=== PATIENT | female | born 1940 | race Caucasian/White ===

== ENCOUNTER 2016-10-17 14:00 | Outpatient (RCR) ==
--- NOTE | 2016-09-30 16:21 | RS.OPPTEV2 ---
Date of Note: 09/30/16 Visit #: 1 Date of Evaluation: 09/30/16 Date of Onset/Injury/Change in Status: 09/14/16 Surgery Performed?: No Treatment Diagnosis: Falls History of Condition/Mechanism of Injury:: Fell on Maribel night. 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 I have been falling more recently and having more diffiuclty walking. I notice my balance is just not as good as it was after the PT I had after my CVA. She hurt her head, left shoulder and left hip when she fell. She has even fallen out of bed several times. She cannot get up out of the floor when she falls and is even having trouble getting up from the toilet daily. Prior Level of Function.....Patient was independent with: ADL's, Self Care, Work /Vocation, Caregiving, Ambulation/Mobility, Community Integration/Access Functional Limitations: Lifting, Carrying, Standing, Bending, Squatting, Ambulation, Community Access/Integration Current Subjective/complaints:: I am fearful of falling all the time. Treatment Side (optional): Bilateral *Precautions: Pt has poorly controlled BP and asked that BP be monitored after tx Medical History Medical History: Hypertension, CVA/TIA, Arthritis, Vascular Disease Medical History Comments:: Left hemiparesis from CVA Surgical History: Cholecystectomy, Other Surgical History Comments:: Cataract, ASD (repair holes in her heart). Pain Assessment - Pain Description Pain Location: left neck and shoulder pain and right knee pain Pain Description: left neck and shoulder pain since fall. Current Pain Intensity: 2-3/10 Other Comments regarding Pain:: OT referral requested to address neck and shoulder pain. Functional Outcome Measure Tinetti: 15 (46% disability) - G Codes & Severity Modifier G Codes & Modifier: Current - Mobility, Walking and Moving Around - CK. Goal: CJ Source of G Code score: Tinetti Balance Assessment Gait - Gait Pattern General Gait Pattern Observation: Weaving Gait, Wide Based Gait (Decreased stride length and decreased LLE clearance intermittently) General Muscle Strength: RLE 5/5. LLE 4/5 except left ankle df of 3/5 Sensation - Sensation Sensation Description: Within Normal Limits Balance - Sitting Balance Static Sitting Balance: Normal Dynamic Sitting Balance: Normal - Standing Balance Static Standing Balance: Good Dynamic Standing Balance: Fair (No AD used.) Coordination - Tests Left Heel to Wren: Mild Deviation (LLE) Interventions - Exercise/Activities/Manual Therapy Exercises/Activities: NMR for static and dynamic balance activites iwth [employer] Balance System performed with assist of handrails and min assist of PT. Manual Therapy: NA - Charges Total Direct Minutes: 60 Total Treatment Time: 15 Procedures billed for this date of service:: PT Eval (Mod) & NMR Assessment Assessment: Left hemiparesis and neuromuscular deficit causing balance and coordination problems with multiple falls and gait deficits. Patient Education: Education of diagnosis, Home Exercise Program, Education of Plan of Care Rehab Potential: Good Short Term Goals Goal #1: Patient independent with beginning HEP Goal to be met by: 10/17/16 Goal #2: Left ankle df 4-/5 Goal to be met by: 10/17/16 Goal #3: Ambulates with good LLE clearance X 500' Goal to be met by: 10/17/16 Goal #4: 18/28 Tinetti Balance Score Goal to be met by: 10/17/16 Prison Goals Goal #1: 4+/5 with LLE strength Goal to be met by: 10/31/16 Goal #2: Tinetti balance score 22/28 to decrease fall risk. Goal to be met by: 10/31/16 Goal #3: No falls since PT began. Goal to be met by: 10/31/16 Goal #4: HEP compliance to maintain DC status. 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
--- NOTE | 2016-10-01 16:23 | RS.OPPTDN ---
Subjective Date of Note: 10/01/16 Visit #: 2 Date of Evaluation: 09/30/16 Treatment Diagnosis: Falls Current Subjective/complaints:: Patient reports left LE weakness is a problem. States this seems to cause her falls. 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 *Precautions: Pt has poorly controlled BP and asked that BP be monitored after tx Pain Assessment - Pain Description Pain Location: left neck and shoulder pain and right knee pain Pain Description: left neck and shoulder pain since fall. Current Pain Intensity: 2-310 Interventions - Exercise/Activities/Manual Therapy Exercises/Activities: Mat exercises of assisted stretching, isometric hip add, isometric hip flexion, bridging, and SLR. Yellow theraband for resistive left ankle df. NMR for static and dynamic balance activites on [employer] Balance System. Standing at handrail for mini-squats, toe-ups, side-stepping, marching, heel toe walking, and backward walking. Step-ups and downs on small stepper board and lateral step-ups and downs. Total minutes of Exercise: EX 15mins, NEURO 35mins Manual Therapy: NA HOME EXERCISE PROGRAM: Standing toe-ups, mini-squats. Isometric hip flexion and add. Bridging. SLR. - Charges Total Direct Minutes: 50mins Total Treatment Time: 50mins Procedures billed for this date of service:: EX, NEUROx2 Assessment: Patient motivated to progress with strengthening and balance activities to improve safe ambulation and functional mobility. Patient Education: Home Exercise Program, Home Safety, Activity Modification Patient demonstrates compliance with HEP?: Yes Short Term Goals Goal #1: Patient independent with beginning HEP Goal to be met by: 10/17/16 Progress towards Goal:: Progressing Goal #2: Left ankle df 4-/5 Goal to be met by: 10/17/16 Goal #3: Ambulates with good LLE clearance X 500' Goal to be met by: 10/17/16 Goal #4: Tinetti Balance Score Goal to be met by: 10/17/16 Pathology Secretary Goals Goal #1: 4+/5 with LLE strength Goal to be met by: 10/31/16 Goal #2: Tinetti balance score to decrease fall risk. Goal to be met by: 10/31/16 Goal #3: No falls since PT began. Goal to be met by: 10/31/16 Goal #4: HEP compliance to maintain DC status. Goal to be met by: 10/31/16 Plan PLAN OF CARE EXPIRES ON:: 10/31/16 ORDER # VISITS AND/OR THROUGH DATE: 10/31/2016 PLAN: Continue Plan of Care
--- NOTE | 2016-10-03 15:11 | RS.OPPTDN ---
Subjective Date of Note: 10/03/16 Visit #: 3 Date of Evaluation: 09/30/16 Treatment Diagnosis: Falls Current Subjective/complaints:: Patient reports she was fatigued after last seesion, but she feels she needs the exercise for strengthening. *Precautions: Pt has poorly controlled BP and asked that BP be monitored after tx Pain Assessment - Pain Description Pain Location: left neck and shoulder pain and right knee pain Pain Description: left neck and shoulder pain since fall. Current Pain Intensity: 2-3/10 Interventions - Exercise/Activities/Manual Therapy Exercises/Activities: NMR for static and dynamic balance activites on [employer] Balance System. Standing at handrail for mini-squats, toe-ups, side-stepping, marching, heel toe walking. Step-ups and downs on small stepper board and lateral step-ups and downs. Treadmill 1 1/2mins x2reps. EXERCISE of FAQ and hip flexion with 2# to each ankle, 2s/10reps each. Wand for overhead flexion 3s/ 5reps. Mat ex of SLR, hip add with pillow, glut sets, bridging, isometric hip flexion, hip abduction. Total minutes of Exercise: NEURO 30mins, EX 15mins Manual Therapy: NA HOME EXERCISE PROGRAM: Standing toe-ups, mini-squats. Isometric hip flexion and add. Bridging. SLR. - Charges Total Direct Minutes: 45mins Total Treatment Time: 45mins Procedures billed for this date of service:: NEUROx2, EX Assessment: Patient motivated to progress with strengthening and balance activities. Patient Education: Home Exercise Program, Home Safety, Activity Modification Patient demonstrates compliance with HEP?: Yes Short Term Goals Goal #1: Patient independent with beginning HEP Goal to be met by: 10/17/16 Progress towards Goal:: Progressing Goal #2: Left ankle df 4-/5 Goal to be met by: 10/17/16 Goal #3: Ambulates with good LLE clearance X 500' Goal to be met by: 10/17/16 Goal #4: Tinetti Balance Score Goal to be met by: 10/17/16 Professor Of Religious Studies Goals Goal #1: 4+/5 with LLE strength Goal to be met by: 10/31/16 Goal #2: Tinetti balance score to decrease fall risk. Goal to be met by: 10/31/16 Goal #3: No falls since PT began. Goal to be met by: 10/31/16 Goal #4: HEP compliance to maintain DC status. Goal to be met by: 10/31/16 Plan PLAN OF CARE EXPIRES ON:: 10/31/16 ORDER # VISITS AND/OR THROUGH DATE: 10/31/2016 PLAN: Continue Plan of Care
--- NOTE | 2016-10-07 16:42 | RS.OPPTDN ---
Subjective Date of Note: 10/07/16 Visit #: 4 Date of Evaluation: 09/30/16 Treatment Diagnosis: Falls Current Subjective/complaints:: Patient reports she is working on HEP and on making sure she picks up her feet with walking. *Precautions: Pt has poorly controlled BP and asked that BP be monitored after tx Pain Assessment - Pain Description Pain Location: left neck and shoulder pain and right knee pain Pain Description: left neck and shoulder pain since fall. Current Pain Intensity: 2-3/10 Interventions - Exercise/Activities/Manual Therapy Exercises/Activities: NMR for static and dynamic balance activites on [employer] Balance System, including unilateral standing. Standing at handrail for mini- squats, grapevine walking, side-stepping, marching, heel toe walking. Step-ups and downs on small stepper board and lateral step-ups and downs. Treadmill 2mins x2reps. EXERCISE Mat ex of SLR, hip add with pillow, glut sets, isometric hip flexion, hip abduction. Yellow theraband for ankle df, 2s/10reps each. Isometric df, inv, and eversion. Total minutes of Exercise: NEURO 30mins, EX 20mins Manual Therapy: NA HOME EXERCISE PROGRAM: Standing toe-ups, mini-squats. Isometric hip flexion and add. Bridging. SLR. - Charges Total Direct Minutes: 50mins Total Treatment Time: 50mins Procedures billed for this date of service:: NEUROx2, EX Assessment: Patient motivated to progress. Patient Education: Home Exercise Program, Home Safety, Activity Modification Patient demonstrates compliance with HEP?: Yes Short Term Goals Goal #1: Patient independent with beginning HEP Goal to be met by: 10/17/16 Progress towards Goal:: Progressing Goal #2: Left ankle df 4-/5 Goal to be met by: 10/17/16 Goal #3: Ambulates with good LLE clearance X 500' Goal to be met by: 10/17/16 Goal #4: Tinetti Balance Score Goal to be met by: 10/17/16 Senior Care Goals Goal #1: 4+/5 with LLE strength Goal to be met by: 10/31/16 Goal #2: Tinetti balance score / to decrease fall risk. Goal to be met by: 10/31/16 Goal #3: No falls since PT began. Goal to be met by: 10/31/16 Goal #4: HEP compliance to maintain DC status. Goal to be met by: 10/31/16 Plan PLAN OF CARE EXPIRES ON:: 10/31/16 ORDER # VISITS AND/OR THROUGH DATE: 10/31/2016 PLAN: Continue Plan of Care
--- NOTE | 2016-10-08 15:18 | RS.OPPTDN ---
Subjective Date of Note: 10/08/16 Visit #: 5 Date of Evaluation: 09/30/16 Treatment Diagnosis: Falls Current Subjective/complaints:: Patient reports she had some muscle soreness after last session, but feels like she needs the strengthening. *Precautions: Pt has poorly controlled BP and asked that BP be monitored after tx Pain Assessment - Pain Description Pain Location: left neck and shoulder pain and right knee pain Pain Description: left neck and shoulder pain since fall. Current Pain Intensity: 2-3/10 Interventions - Exercise/Activities/Manual Therapy Exercises/Activities: NMR for static and dynamic balance activites on [employer] Balance System, including unilateral standing. Standing at handrail for, grapevine walking, side-stepping, marching, heel toe walking, backward walking. Standing on blue therapy foam, 3 times each side. Step-ups and downs on small stepper board and lateral step-ups and downs. EXERCISE Standing hip abduction, toe-ups, and squats. Ball on wall each arm. Standing scapular retraction 20#, 2s /10reps. Leg press 30# 2s/10reps and toe-offs 30# 2s/10reps. Total minutes of Exercise: NEURO 35mins, EX 15mins Manual Therapy: NA HOME EXERCISE PROGRAM: Standing toe-ups, mini-squats. Isometric hip flexion and add. Bridging. SLR. Isometric ankld df, inv, and ever. Standing hip abduction. - Charges Total Direct Minutes: 50mins Total Treatment Time: 50mins Procedures billed for this date of service:: NEUROx2, EX Assessment: Patient progressing well with balance and strengthening activities. Patient Education: Home Exercise Program, Home Safety, Activity Modification Comments: Reviewed safety including wider stance on days she feels fatigued. Patient demonstrates compliance with HEP?: Yes Short Term Goals Goal #1: Patient independent with beginning HEP Goal to be met by: 10/17/16 Progress towards Goal:: Progressing Goal #2: Left ankle df 4-/5 Goal to be met by: 10/17/16 Goal #3: Ambulates with good LLE clearance X 500' Goal to be met by: 10/17/16 Goal #4: Tinetti Balance Score Goal to be met by: 10/17/16 [facility] Goals Goal #1: 4+/5 with LLE strength Goal to be met by: 10/31/16 Goal #2: Tinetti balance score 22/28 to decrease fall risk. Goal to be met by: 10/31/16 Goal #3: No falls since PT began. Goal to be met by: 10/31/16 Goal #4: HEP compliance to maintain DC status. Goal to be met by: 10/31/16 Plan PLAN OF CARE EXPIRES ON:: 10/31/16 ORDER # VISITS AND/OR THROUGH DATE: 10/31/2016 PLAN: Continue Plan of Care
--- NOTE | 2016-10-10 15:18 | RS.OPPTDN ---
Subjective Date of Note: 10/10/16 Visit #: 6 Date of Evaluation: 09/30/16 Treatment Diagnosis: Falls Current Subjective/complaints:: Patient reports left LE seems stronger. States she is working on HEP including theraband for resistive left ankle df. *Precautions: Pt has poorly controlled BP and asked that BP be monitored after tx Pain Assessment - Pain Description Pain Location: left neck and shoulder pain and right knee pain Pain Description: left neck and shoulder pain since fall. Current Pain Intensity: 2-3/10 Interventions - Exercise/Activities/Manual Therapy Exercises/Activities: NMR for static and dynamic balance activites on [employer], including unilateral standing. Standing at handrail for, grapevine walking, side-stepping, marching, heel toe walking, backward walking. Standing on blue therapy foam, 3 times each side. Step-ups and downs on small stepper board and lateral step-ups and downs. EXERCISE Standing hip abduction, toe-ups, and squats. Ball on wall each arm. Standing scapular retraction 20#, 2s /10reps. Leg press 30# 2s/10reps and toe-offs 30# 2s/10reps. Mat exercises of isometric hip add, SLR, bridging, alt hip flexion, isometric hip abduction. Total minutes of Exercise: NEURO 30mins, EX 20mins Manual Therapy: NA HOME EXERCISE PROGRAM: Standing toe-ups, mini-squats. Isometric hip flexion and add. Bridging. SLR. Isometric ankld df, inv, and ever. Standing hip abduction. - Charges Total Direct Minutes: 50mins Total Treatment Time: 50mins Procedures billed for this date of service:: NEUROx2, EX Assessment: Patient progressing well with strengthening. Patient Education: Home Exercise Program Patient demonstrates compliance with HEP?: Yes Short Term Goals Goal #1: Patient independent with beginning HEP Goal to be met by: 10/17/16 Progress towards Goal:: Met Goal #2: Left ankle df 4-/5 Goal to be met by: 10/17/16 Goal #3: Ambulates with good LLE clearance X 500' Goal to be met by: 10/17/16 Goal #4: Tinetti Balance Score Goal to be met by: 10/17/16 Plate Painter Apprentice Goals Goal #1: 4+/5 with LLE strength Goal to be met by: 10/31/16 Goal #2: Tinetti balance score 22/28 to decrease fall risk. Goal to be met by: 10/31/16 Goal #3: No falls since PT began. Goal to be met by: 10/31/16 Goal #4: HEP compliance to maintain DC status. Goal to be met by: 10/31/16 Plan PLAN OF CARE EXPIRES ON:: 10/31/16 ORDER # VISITS AND/OR THROUGH DATE: 10/31/2016 PLAN: Continue Plan of Care
--- NOTE | 2016-10-14 16:35 | RS.OPPTDN ---
Subjective Date of Note: 10/14/16 Visit #: 7 Date of Evaluation: 09/30/16 Treatment Diagnosis: Falls Current Subjective/complaints:: Patient reports being able to lift left LE into car. States she is getting stronger. *Precautions: Pt has poorly controlled BP and asked that BP be monitored after tx Pain Assessment - Pain Description Pain Location: left neck and shoulder pain and right knee pain Pain Description: left neck and shoulder pain since fall. Current Pain Intensity: 2-3/10 Interventions - Exercise/Activities/Manual Therapy Exercises/Activities: NEURO. Static and dynamic balance activites on [employer] Balance System, including unilateral standing. Standing at handrail for, grapevine walking, side-stepping, marching, heel toe walking, backward walking. Standing on blue therapy foam, multiple reps. Ball on wall while standing and while performing side-stepping. EXERCISE Standing hip abduction, toe-ups, and squats. Standing scapular retraction 20#, 2s/10reps. Leg press 30# 2s/10reps. Mat exercises of isometric hip add, SLR, alt hip flexion, isometric hip abduction. Green theraband for hip abd in hook-lying, 2s/10reps each, and left ankle df 2s/10reps. Assisted hamstring stretching and SKTC. Total minutes of Exercise: NEURO 35mins EX 15mins Manual Therapy: NA HOME EXERCISE PROGRAM: Standing toe-ups, mini-squats. Isometric hip flexion and add. Bridging. SLR. Isometric ankld df, inv, and ever. Standing hip abduction. - Charges Total Direct Minutes: 50mins Total Treatment Time: 50mins Procedures billed for this date of service:: NEUROx2, EX Assessment: Patient progressing with strengthening and reports improvement in left LE with functional activities. Patient Education: Home Exercise Program, Home Safety, Activity Modification Patient demonstrates compliance with HEP?: Yes Short Term Goals Goal #1: Patient independent with beginning HEP Goal to be met by: 10/17/16 Progress towards Goal:: Met Goal #2: Left ankle df 4-/5 Goal to be met by: 10/17/16 Goal #3: Ambulates with good LLE clearance X 500' Goal to be met by: 10/17/16 Progress towards Goal:: Progressing Goal #4: Tinetti Balance Score Goal to be met by: 10/17/16 Group Home Goals Goal #1: 4+/5 with LLE strength Goal to be met by: 10/31/16 Goal #2: Tinetti balance score / to decrease fall risk. Goal to be met by: 10/31/16 Goal #3: No falls since PT began. Goal to be met by: 10/31/16 Progress towards goal: Progressing Goal #4: HEP compliance to maintain DC status. Goal to be met by: 10/31/16 Plan PLAN OF CARE EXPIRES ON:: 10/31/16 ORDER # VISITS AND/OR THROUGH DATE: 10/31/2016 PLAN: Continue Plan of Care
--- NOTE | 2016-10-17 15:38 | RS.OPPTDN ---
Subjective Date of Note: 10/17/16 Visit #: 9 Date of Evaluation: 09/30/16 Treatment Diagnosis: Falls Current Subjective/complaints:: Patient c/o increased pain and fatigue today. She says she thinks she did too much last session. She says she feels she has been improving, but is just having a bad day. *Precautions: Pt has poorly controlled BP and asked that BP be monitored after tx Pain Assessment - Pain Description Pain Location: left neck and shoulder pain and right knee pain Pain Description: left neck and shoulder pain since fall. Current Pain Intensity: 2-310 Interventions - Exercise/Activities/Manual Therapy Exercises/Activities: Omitted balance first aid trainer today. Patient receives: SKTC, HS, Piriformis, and heel cord stretching bilaterally. Also, pillow squeezes, isometric hip flexion/abd, SAQ 2#, QS, DF with red tband, all /10. She sits for shoulder shrugs and scap retraction with red tband using therapy stick x 10 reps. Standing at handrail for, grapevine walking, side-stepping, marching, heel toe walking. Total minutes of Exercise: 35 Manual Therapy: NA HOME EXERCISE PROGRAM: Standing toe-ups, mini-squats. Isometric hip flexion and add. Bridging. SLR. Isometric ankld df, inv, and ever. Standing hip abduction. - Charges Total Direct Minutes: 35 Total Treatment Time: 35 Procedures billed for this date of service:: ex2 Assessment: Patient admits increased pain and fatigue today. We omitted some therex to allow rest and verify symptom change. She demo tightness to the L HS and heel cords compared to the R and did improve with stretches today. Gait appears steady with dynamic exercises. Patient Education: Education of diagnosis, Body/Joint mechanics, Home Exercise Program, Home Safety, Activity Modification, Education of Plan of Care Patient demonstrates compliance with HEP?: Yes Short Term Goals Goal #1: Patient independent with beginning HEP Goal to be met by: 10/17/16 Progress towards Goal:: Met Goal #2: Left ankle df 4-/5 Goal to be met by: 10/17/16 Goal #3: Ambulates with good LLE clearance X 500' Goal to be met by: 10/17/16 Progress towards Goal:: Progressing Goal #4: Tinetti Balance Score Goal to be met by: 10/17/16 Electrolog Operator Goals Goal #1: 4+/5 with LLE strength Goal to be met by: 10/31/16 Goal #2: Tinetti balance score to decrease fall risk. Goal to be met by: 10/31/16 Goal #3: No falls since PT began. Goal to be met by: 10/31/16 Progress towards goal: Progressing Goal #4: HEP compliance to maintain DC status. Goal to be met by: 10/31/16 Plan PLAN OF CARE EXPIRES ON:: 10/31/16 ORDER # VISITS AND/OR THROUGH DATE: 10/31/2016 PLAN: Progress Exercises
--- NOTE | 2016-10-17 16:44 | RS.OPPTDN ---
Subjective Date of Note: 10/15/16 Visit #: 8 Date of Evaluation: 09/30/16 Treatment Diagnosis: Falls Current Subjective/complaints:: Patient admits she is doing well with all PT and feels she is improving. She denies any falls or unsteadiness at present. She presents with pleasant attitude toward further improvement. *Precautions: Pt has poorly controlled BP and asked that BP be monitored after tx Pain Assessment - Pain Description Pain Location: left neck and shoulder pain and right knee pain Pain Description: left neck and shoulder pain since fall. Current Pain Intensity: 2-3/10 Balance System Training - Level 1 Postural Stability/Symmetry #1 Training Mode: Postural Stability Training Vision: Eyes Open Task: None Stance: Single Leg Time: 30 sec's Reps: 3 - Level 2 Dynamic Weight Shifting #1 Training Mode: Maze Control Skill Level (1-3): 1 and 2 Platform Stability Level (1-12): static Time: 2 Reps: 2 Interventions - Exercise/Activities/Manual Therapy Exercises/Activities: NEURO. Static and dynamic balance activites on [employer] Balance System, including unilateral standing and maze control/weight shifting. Standing at handrail for, grapevine walking, side-stepping, marching, heel toe walking, backward walking. Ball on wall while standing and while performing side-stepping. EXERCISE Standing hip abduction, toe-ups, and squats. Standing scapular retraction 20#, 2s/10reps. Leg press 30# 2s/10reps. Mat exercises of passive SKTC, HS, and heel cord stretching bilaterally x 3. Isometric hip add, SLR, alt hip flexion, isometric hip abduction/flexion. Green theraband for hip abd in hook-lying, 2s/10reps each, and left ankle df 2s/10reps. Total minutes of Exercise: 45 Manual Therapy: NA HOME EXERCISE PROGRAM: Standing toe-ups, mini-squats. Isometric hip flexion and add. Bridging. SLR. Isometric ankld df, inv, and ever. Standing hip abduction. - Charges Total Direct Minutes: 45 Total Treatment Time: 45 Procedures billed for this date of service:: ex2, neuro1 Assessment: Patient progressing with mat exercises and dynamic bal exercises well and without c/o's. She maintains good bal with all activities, only having mild fatigue at end of session. Patient Education: Education of diagnosis, Body/Joint mechanics, Home Exercise Program, Home Safety, Activity Modification, Education of Plan of Care Patient demonstrates compliance with HEP?: Yes Short Term Goals Goal #1: Patient independent with beginning HEP Goal to be met by: 10/17/16 Progress towards Goal:: Met Goal #2: Left ankle df 4-/5 Goal to be met by: 10/17/16 Goal #3: Ambulates with good LLE clearance X 500' Goal to be met by: 10/17/16 Progress towards Goal:: Progressing Goal #4: Tinetti Balance Score Goal to be met by: 10/17/16 Fdc Goals Goal #1: 4+/5 with LLE strength Goal to be met by: 10/31/16 Goal #2: Tinetti balance score to decrease fall risk. Goal to be met by: 10/31/16 Goal #3: No falls since PT began. Goal to be met by: 10/31/16 Progress towards goal: Progressing Goal #4: HEP compliance to maintain DC status. Goal to be met by: 10/31/16 Plan PLAN OF CARE EXPIRES ON:: 10/31/16 ORDER # VISITS AND/OR THROUGH DATE: 10/31/2016 PLAN: Progress Exercises (Continue x 1 more week)
== END 2016-10-21 ==
PROVIDERS: ATTEND Family Medicine
DX: R26.9 Unspecified abnormalities of gait and mobility (principal); T14.8 Other injury of unspecified body region; S06.0X0S Concussion without loss of consciousness, sequela; W19.XXXS Unspecified fall, sequela

== ENCOUNTER 2016-10-31 14:00 | Outpatient (RCR) ==
--- NOTE | 2016-10-22 15:24 | RS.OPPTDN ---
Subjective Date of Note: 10/22/16 Visit #: 10 Date of Evaluation: 09/30/16 Treatment Diagnosis: Falls Current Subjective/complaints:: Patient reports she is doing better. States she is taking good steps with ambulation. Reports reduction in foot drop/slap on floor. Reports she is stronger and is able to go up/down steps, perform gen mobility in home and get in and out of car much better. Reports knee pain is better since starting strengthening. *Precautions: Pt has poorly controlled BP and asked that BP be monitored after tx Pain Assessment - Pain Description Pain Location: left neck and shoulder pain and right knee pain Pain Description: left neck and shoulder pain since fall. Current Pain Intensity: 2-3 Interventions - Exercise/Activities/Manual Therapy Exercises/Activities: NEURO. Static and dynamic balance activites of unilateral standing and toe-ups. Stepping up and over low stepper board and lateral step- ups, multiple reps. Also standing at handrail for, grapevine walking, side- stepping, marching, heel toe walking, backward walking. Ball on wall while standing and while performing side-stepping. EXERCISE Standing hip abduction and march with 3# each side. Mini-squats. Leg press 30# 2s/10reps. Mat exercises of passive SKTC, HS, and heel cord stretching bilaterally. Isometric hip add, SLR, alt hip flexion with 2#, isometric hip abduction/flexion. SAQ with 2#. Red theraband for hip abd in hook-lying, 2s/10reps each, and left ankle df 2s/10reps. Bridging. Total minutes of Exercise: EX 30mins, NEURO 20mins Manual Therapy: NA HOME EXERCISE PROGRAM: Standing toe-ups, mini-squats. Isometric hip flexion and add. Bridging. SLR. Isometric ankld df, inv, and ever. Standing hip abduction. - Objective Findings Observations,measurements,etc.: Increases Tinetti score to 20/28 or 28.6% deficit - Charges Total Direct Minutes: 50mins Total Treatment Time: 50mins Procedures billed for this date of service:: EX2, NEURO Assessment: Patient progressing with exercise and balance activities. She increases her FOM score. Patient Education: Home Exercise Program, Home Safety, Activity Modification Patient demonstrates compliance with HEP?: Yes Short Term Goals Goal #1: Patient independent with beginning HEP Goal to be met by: 10/17/16 Progress towards Goal:: Met Goal #2: Left ankle df 4-/5 Goal to be met by: 10/17/16 Progress towards Goal:: Progressing Goal #3: Ambulates with good LLE clearance X 500' Goal to be met by: 10/17/16 (100%) Progress towards Goal:: Met Goal #4: Tinetti Balance Score Goal to be met by: 10/17/16 (100%) Progress towards Goal:: Met Group Home Goals Goal #1: 4+/5 with LLE strength Goal to be met by: 10/31/16 Progress towards goal: Progressing Goal #2: Tinetti balance score to decrease fall risk. Goal to be met by: 10/31/16 Progress towards goal: Progressing Goal #3: No falls since PT began. Goal to be met by: 10/31/16 (75%) Progress towards goal: Progressing Comments: No falls to date Goal #4: HEP compliance to maintain DC status. Goal to be met by: 10/31/16 Plan PLAN OF CARE EXPIRES ON:: 10/31/16 ORDER # VISITS AND/OR THROUGH DATE: 10/31/2016 PLAN: Continue Plan of Care (Continue strengthening and balance to increase function and safety.)
--- NOTE | 2016-10-23 11:20 | RS.OPPTPN ---
Date of Note: 10/22/16 Visit #: 10 Date of Evaluation: 09/30/16 Date of Onset/Injury/Change in Status: 09/14/16 Surgery Performed?: No Treatment Diagnosis: Falls History of Condition/Mechanism of Injury:: Fell on [place] night. 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 I have been falling more recently and having more diffiuclty walking. I notice my balance is just not as good as it was after the PT I had after my CVA. She hurt her head, left shoulder and left hip when she fell. She has even fallen out of bed several times. She cannot get up out of the floor when she falls and is even having trouble getting up from the toilet daily. Prior Level of Function.....Patient was independent with: ADL's, Self Care, Work /Vocation, Caregiving, Ambulation/Mobility, Community Integration/Access Functional Limitations: Lifting, Carrying, Standing, Bending, Squatting, Ambulation, Community Access/Integration Current Subjective/complaints:: Patient reports increased functional activity performance including improved ability to negotiate steps, get in/out of car and foot drop corrected. She reports she has not fallen anymore since beginning PT. Treatment Side (optional): Bilateral *Precautions: Pt has poorly controlled BP and asked that BP be monitored after tx Pain Assessment - Pain Description Pain Location: left neck and shoulder pain and right knee pain Pain Description: left neck and shoulder pain since fall. Current Pain Intensity: 2-3/10 Functional Outcome Measure Tinetti: 20 (28.6% disability) - G Codes & Severity Modifier G Codes & Modifier: Mobility, Walking & Moving Around. Current - CJ. Goal - CJ Source of G Code score: Tinetti Interventions - Exercise/Activities/Manual Therapy Exercises/Activities: NA Manual Therapy: NA - Charges Total Direct Minutes: NA Total Treatment Time: NA Procedures billed for this date of service:: NA Assessment Assessment: Patient is making excellent progress with skilled PT intervention. Short Term Goals Goal #1: Patient independent with beginning HEP Goal to be met by: 10/17/16 Progress towards Goal:: Met Goal #2: Left ankle df 4-/5 Goal to be met by: 10/17/16 Progress towards Goal:: Progressing Goal #3: Ambulates with good LLE clearance X 500' Goal to be met by: 10/17/16 (100%) Progress towards Goal:: Met Goal #4: Tinetti Balance Score Goal to be met by: 10/17/16 (100%) Progress towards Goal:: Met Refrigerator Assembler Goals Goal #1: 4+/5 with LLE strength Goal to be met by: 10/31/16 Progress towards goal: Progressing Goal #2: Tinetti balance score to decrease fall risk. Goal to be met by: 10/31/16 Progress towards goal: Progressing Goal #3: No falls since PT began. Goal to be met by: 10/31/16 (75%) Progress towards goal: Progressing Goal #4: HEP compliance to maintain DC status. Goal to be met by: 10/31/16 Plan PLAN OF CARE EXPIRES ON:: 10/31/16 ORDER # VISITS AND/OR THROUGH DATE: 10/31/2016 PLAN: Continue Plan of Care (Will plan to DC in the next 2 visits as ordered per MD>)
--- NOTE | 2016-10-24 15:24 | RS.OPPTDN ---
Subjective Date of Note: 10/24/16 Visit #: 11 Date of Evaluation: 09/30/16 Treatment Diagnosis: Falls Current Subjective/complaints:: Patient reports she is very pleased with her progress with strength and ability with daily activities. States she was able to get in and out of car a few times today and left foot cleared without drag. She is doing well going up and sown steps at home and in community. *Precautions: Pt has poorly controlled BP and asked that BP be monitored after tx Pain Assessment - Pain Description Pain Location: left neck and shoulder pain and right knee pain Pain Description: left neck and shoulder pain since fall. Current Pain Intensity: 2-3/10 Interventions - Exercise/Activities/Manual Therapy Exercises/Activities: NEURO. Balance [place] for balance activites of unilateral standing, random control, and Catch Game. Stepping up and over low stepper board and lateral step-ups, multiple reps. Also standing at handrail for grapevine walking, side-stepping, marching. Standing on green theraband foam facility service associate. EXERCISE Mat exercises of passive SKTC, HS, and heel cord stretching bilaterally. Isometric hip add, SLR, alt hip flexion increased to 3# , isometric hip abduction/flexion. SAQ with 2#. Green theraband for hip abd in hook-lying, 2s/10reps each, and left ankle df 2s/10reps. Bridging. Standing hip abduction, march, mini-squats and toe-ups. Leg press 30# 2s/10reps. Total minutes of Exercise: NEURO 15mins, EX 25mins Manual Therapy: NA HOME EXERCISE PROGRAM: Standing toe-ups, mini-squats. Isometric hip flexion and add. Bridging. SLR. Isometric ankld df, inv, and ever. Standing hip abduction. - Charges Total Direct Minutes: 40mins Total Treatment Time: 45mins Procedures billed for this date of service:: NEURO, EX2 Assessment: Progressing well with functional activities. Patient Education: Home Exercise Program, Home Safety, Activity Modification Patient demonstrates compliance with HEP?: Yes Short Term Goals Goal #1: Patient independent with beginning HEP Goal to be met by: 10/17/16 Progress towards Goal:: Met Goal #2: Left ankle df 4-/5 Goal to be met by: 10/17/16 Progress towards Goal:: Progressing Goal #3: Ambulates with good LLE clearance X 500' Goal to be met by: 10/17/16 (100%) Progress towards Goal:: Met Goal #4: Tinetti Balance Score Goal to be met by: 10/17/16 (100%) Progress towards Goal:: Met Bulbs Farmworker Goals Goal #1: 4+/5 with LLE strength Goal to be met by: 10/31/16 Progress towards goal: Progressing Goal #2: Tinetti balance score to decrease fall risk. Goal to be met by: 10/31/16 Progress towards goal: Progressing Goal #3: No falls since PT began. Goal to be met by: 10/31/16 (75%) Progress towards goal: Progressing Goal #4: HEP compliance to maintain DC status. Goal to be met by: 10/31/16 Plan PLAN OF CARE EXPIRES ON:: 10/31/16 ORDER # VISITS AND/OR THROUGH DATE: 10/31/2016 PLAN: Continue Plan of Care (Continue next week with progresive strengthening and prepare for discharge with HEP.)
--- NOTE | 2016-10-31 16:48 | RS.OPPTDN ---
Subjective Date of Note: 10/31/16 Visit #: 12 Date of Evaluation: 09/30/16 Treatment Diagnosis: Falls Current Subjective/complaints:: Patient reports she has progressed. She reports she is stronger and has had no falls. Reports she will continue HEP for LE and postural strengthening. *Precautions: Pt has poorly controlled BP and asked that BP be monitored after tx Pain Assessment - Pain Description Pain Location: left neck and shoulder pain and right knee pain Pain Description: left neck and shoulder pain since fall. Current Pain Intensity: mild Interventions - Exercise/Activities/Manual Therapy Exercises/Activities: NEURO. Balance Mail Room Clerk for balance activites of unilateral standing, random control, and Catch Game. Stepping up and over low stepper board and lateral step-ups, multiple reps. Also standing at handrail for grapevine walking, side-stepping, heel-toe walking, marching. Standing on green theraband foam bulk coolers installer. EXERCISE Mat exercises of passive SKTC, HS, and heel cord stretching bilaterally. Isometric hip add, SLR, alt hip flexion increased to 3#, isometric hip abduction/flexion. SAQ with 3#. Red theraband for hip abd in hook-lying, 2s/10reps each, and left ankle df 2s/10reps. Lower trunk rotation with ball and UE/upper body rotation while holding ball above head. Bridging. Sitting, red theraband for sacpular retaction. Ball on wall overhead with side-stepping. Leg press 30# 2s/10reps. Reviewed HEP and patient given copies and additional therabands. Total minutes of Exercise: NEURO 25mins, EX 30mins Manual Therapy: NA HOME EXERCISE PROGRAM: Standing toe-ups, mini-squats. Isometric hip flexion and add. Bridging. SLR. Isometric ankld df, inv, and ever. Standing hip abduction. - Objective Findings Observations,measurements,etc.: Tinetti 20 or 28.6% disability - Charges Total Direct Minutes: 55mins Total Treatment Time: 55mins Procedures billed for this date of service:: NEURO2, EX2 Assessment: Patient has progressed with strengthening and balance activities. She reports no falls and is independent with HEP. Patient Education: Body/Joint mechanics, Home Exercise Program, Home Safety, Activity Modification Comments: Reviewed and finalized patient education and HEP. Patient demonstrates compliance with HEP?: Yes Short Term Goals Goal #1: Patient independent with beginning HEP Goal to be met by: 10/17/16 Progress towards Goal:: Met Goal #2: Left ankle df 4-/5 Goal to be met by: 10/17/16 Progress towards Goal:: Met Goal #3: Ambulates with good LLE clearance X 500' Goal to be met by: 10/17/16 (100%) Progress towards Goal:: Met Goal #4: Tinetti Balance Score Goal to be met by: 10/17/16 (100%) Progress towards Goal:: Met [facility] Goals Goal #1: 4+/5 with LLE strength Goal to be met by: 10/31/16 Progress towards goal: Progressing Goal #2: Tinetti balance score to decrease fall risk. Goal to be met by: 10/31/16 Progress towards goal: Progressing Goal #3: No falls since PT began. Goal to be met by: 10/31/16 Progress towards goal: Met Goal #4: HEP compliance to maintain DC status. Goal to be met by: 10/31/16 Progress towards goal: Met Plan PLAN OF CARE EXPIRES ON:: 10/31/16 ORDER # VISITS AND/OR THROUGH DATE: 10/31/2016 PLAN: Plan for Discharge (Discharge with HEP.)
--- NOTE | 2016-11-04 10:15 | RS.OPPTDC ---
Date of Discharge: 10/24/16 Date of Evaluation: 09/30/16 Number of Visits: 12 Treatment Diagnosis: Falls Current Level of Function: Independent with HEP. Pain Assessment - Pain Description Pain Location: left neck and shoulder pain and right knee pain Pain Description: left neck and shoulder pain since fall. Current Pain Intensity: mild Functional Outcome Measure Tinetti: 20 - G Codes & Severity Modifier G Codes & Modifier: Mobility: Eval - CK. Goal - CJ. DC - CJ Source of G Code score: Tinetti's Interventions - Exercise/Activities/Manual Therapy Exercises/Activities: NA Manual Therapy: NA - Charges Total Direct Minutes: NA Total Treatment Time: NA Procedures billed for this date of service:: NA Assessment Assessment: Patient made excellent progress and met 6/8 goals. She was still progressing at DC and independent in HEP to continue that progression. Short Term Goals Goal #1: Patient independent with beginning HEP Goal to be met by: 10/17/16 Progress towards Goal:: Met Goal #2: Left ankle df 4-/5 Goal to be met by: 10/17/16 Progress towards Goal:: Met Goal #3: Ambulates with good LLE clearance X 500' Goal to be met by: 10/17/16 (100%) Progress towards Goal:: Met Goal #4: 18/28 Tinetti Balance Score Goal to be met by: 10/17/16 (100%) Progress towards Goal:: Met Demand Planning Manager Goals Goal #1: 4+/5 with LLE strength Goal to be met by: 10/31/16 Progress towards goal: Progressing Goal #2: Tinetti balance score 22/28 to decrease fall risk. Goal to be met by: 10/31/16 Progress towards goal: Progressing Goal #3: No falls since PT began. Goal to be met by: 10/31/16 Progress towards goal: Met Goal #4: HEP compliance to maintain DC status. Goal to be met by: 10/31/16 Progress towards goal: Met Plan Reason for Discharge:: No Further Skilled Therapy Indicated (Patient was independent to continue with HEP and other 2 goals are expected to be achieved.)
== END 2016-11-18 ==
PROVIDERS: ATTEND Family Medicine
DX: R26.9 Unspecified abnormalities of gait and mobility (principal)

== ENCOUNTER 2017-11-10 13:38 | Outpatient (CLI) ==
[2017-11-10] MEDS ORDERED: PROLIA SUBCUT STA (13:47)
[2017-11-10 13:52] VITALS: BP 111/71; TEMP 98.6
== END 2017-11-10 14:40 | disposition home or self-care (01) ==
LOC: OPMED 13:38
PROVIDERS: ATTEND Family Medicine
DX: M81.0 Age-related osteoporosis without current pathological fracture (principal)
CPT/HCPCS: 96372

== ENCOUNTER 2018-05-04 14:00 | Outpatient (RCR) ==
--- NOTE | 2018-04-29 16:09 | RS.OPPTEV2 ---
Date of Note: 04/29/18 Visit #: 1 Date of Evaluation: 09/30/16 Date of Onset/Injury/Change in Status: 04/01/18 (pt suffered a fall at home) Surgery Performed?: No Treatment Diagnosis: fall, multiple contusions, gait difficulty, late effect CVA , fx lumbar History of Condition/Mechanism of Injury:: pt states she was getting up to go to bathroom at home and suffered a fall. States she was trying to becareful but still fell. States no dizziness noted. Prior Level of Function.....Patient was independent with: ADL's, Self Care, Work /Vocation, Caregiving, Ambulation/Mobility, Community Integration/Access Level of Function: Independent with amb and ADL's at home. Functional Limitations: Lifting, Carrying, Standing, Bending, Squatting, Ambulation, Community Access/Integration Current Subjective/complaints:: pt states she has no stamina, difficulty standing from chair without use of UE's. pt reports that she has also had increased difficulty with balance and falls lately. Treatment Side (optional): N/A *Precautions: fall precautions Medical History Medical History: Hypertension, CVA/TIA, Arthritis, Vascular Disease, Cancer ( skin) Medical History Comments:: Left hemiparesis from CVA Surgical History: Cholecystectomy, Other Surgical History Comments:: Cataract, ASD (repair holes in her heart). Smoking Status: Former smoker Diagnostic Testing/Imaging:: Posterior L 12th rib fx, multiple minimally displaced L lumbar spine transverse process fxs Hx Home Medications: acetaminophen, amlodipine, atorvastatin, calcium, clonidine , diazepam, ferrous sulfate, fluoxetine, furosemide, meclizine, metoprolol succinate xl, multivitamin, olmesartan, pantoprazole, prolia, xarelto. Patient's Goals: Be able to amb with less risk of falling. Functional Outcome Measure Dynamic Gait: 10 (58%) - G Codes & Severity Modifier G Codes & Modifier: mobility walking and moving around: current CL. mobility walking and moving around: goal CJ Source of G Code score: dyn gait index Observation - Observation Posture: Forward Head, Rounded Shoulders, Increased Thoracic Kyphosis, Decreased Lumbar Lordosis Handedness: Right Gait - Gait Pattern General Gait Pattern Observation: Ataxic Gait, Crouched Gait, Decrease Stride Lngth (R), Decrease Stride Lngth (L) Gait Comments: pt with increased lat sway, foot slap on LLE. 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 RLE hip flex 4/5, knee flex/ext 4+/5, ankle DF/PF 4+/5. LLE hip flex 4-/5, knee flex/ext 4-/5, ankle DF/PF 4/5 Palpation Palpation Findings: None/Normal Sensation - Sensation Right Upper Extremity: Intact/Normal Left Upper Extremity: Intact/Normal Right Lower Extremity: Intact/Normal Left Lower Extremity: Intact/Normal Balance - Sitting Balance Static Sitting Balance: Good Dynamic Sitting Balance: Good - Standing Balance Static Standing Balance: Good Dynamic Standing Balance: Fair - Comments Balance Assessment Comments: dyn gait index score 07/14. pt with increased difficulty with head turns as well as stepping over obstacles. Interventions - Exercise/Activities/Manual Therapy Exercises/Activities: pt performed isometric hip add x 5 reps, resisted hip abd , hip flex, LAQ, AP with green t band x 10 reps. Manual Therapy: NA HOME EXERCISE PROGRAM: pt given written HEP including AP, LAQ, seated hip flex, hip abd with green tband, isometric hip add. - Charges Timed Code Treatment Minutes: 51 Total Treatment Time: 51 Procedures billed for this date of service:: eval med, EVALUATION COMPLEXITY LEVEL EVALUATION COMPLEXITY LEVEL: HISTORY: Medium (HTN, CVA, OA, osteoporosis), EXAM OF BODY SYSTEMS: Medium (strength, balance, gait, posture), CLINICAL PRESENTATION: Medium, CLINICAL DECISION MAKING: Medium Assessment Assessment: pt presents with gait abnormality, decreased strength, and decreased balance. pt scored 10/24 dyn gait index which is consistent with high risk of falls. Patient Education: Home Exercise Program, Education of Plan of Care Rehab Potential: Good Short Term Goals Goal #1: pt independent with initial HEP Goal to be met by: 05/20/18 Goal #2: Improve LLE strength 4/5 Goal to be met by: 05/20/18 Goal #3: pt amb in dept with no LOB without AD Goal to be met by: 05/20/18 Goal #4: Improved dyn standing balance as shown by dyn gait index score Goal to be met by: 05/20/18 [facility] Goals Goal #1: Improve dyn stand balance as noted by dyn gait index score Goal to be met by: 06/10/18 Goal #2: pt amb community distances with no LOB with improved sequencing Goal to be met by: 06/10/18 Goal #3: No new falls reported Goal to be met by: 06/10/18 Goal #4: Improve BLE strength 4 to 4+/5 Goal to be met by: 06/10/18 Plan - Treatment to be Provided Procedures: Therapeutic Exercises, Therapeutic Activity, Gait Training, Neuromuscular Rehab, Patient Education Modalities: No Modalities - Treatment Plan Frequency: 2 X week Duration: 6 weeks ORDER # VISITS AND/OR THROUGH DATE: 06/10/18 - Treatment Code (1) Ataxic gait Code(s): R26.0 - ATAXIC GAIT (2) Muscle weakness Code(s): M62.81 - MUSCLE WEAKNESS (GENERALIZED) (3) Risk for falls Code(s): R29.6 - REPEATED FALLS
--- NOTE | 2018-05-04 15:09 | RS.OPPTDN ---
Subjective Date of Note: 05/04/18 Visit #: 2 Date of Evaluation: 09/30/16 Treatment Diagnosis: fall, multiple contusions, gait difficulty, late effect CVA , fx lumbar Current Subjective/complaints:: Patient reports left LE is much weaker than the right. Reports some fatigue following exercise. Reports she has back pain today. *Precautions: fall precautions Interventions - Exercise/Activities/Manual Therapy Exercises/Activities: Began with assisted stretching of the bilateral HS and SKTC. Isometric hip add and isometric ankle inversion with small ball. Isometric hip flex. Green t band for resistive ankle df and ham curl, 2s/10reps each. Alt hip flexion in hook-lying and SAQ, each with 3#. All exercise 2s/ 10reps. Standing at wall for left heel cord stretch. Standing at rail for marching, toe-ups, and alt hip abd. Unilateral standing with ATOMIC WELDER and left side handrail. Standing with ATOMIC WELDER with head turns and trunk rotation to challenge balance. Total minutes of Exercise: 42mins Manual Therapy: NA HOME EXERCISE PROGRAM: pt given written HEP including AP, LAQ, seated hip flex, hip abd with green tband, isometric hip add. Standing at kitchen counter for marching, toe-ups, and alt hip abd. Gastroc stretch at wall. - Charges Timed Code Treatment Minutes: 42mins Total Treatment Time: 42mins Procedures billed for this date of service:: EX3 Assessment: Patient motivated to progress with exercise and work on HEP. Patient Education: Home Exercise Program, Home Safety, Activity Modification Patient demonstrates compliance with HEP?: Yes Short Term Goals Goal #1: pt independent with initial HEP Goal to be met by: 05/20/18 Progress towards Goal:: Progressing Goal #2: Improve LLE strength 4/5 Goal to be met by: 05/20/18 Goal #3: pt amb in dept with no LOB without AD Goal to be met by: 05/20/18 Goal #4: Improved dyn standing balance as shown by dyn gait index score Goal to be met by: 05/20/18 Sox Analyst Goals Goal #1: Improve dyn stand balance as noted by dyn gait index score Goal to be met by: 06/10/18 Goal #2: pt amb community distances with no LOB with improved sequencing Goal to be met by: 06/10/18 Goal #3: No new falls reported Goal to be met by: 06/10/18 Progress towards goal: Progressing Goal #4: Improve BLE strength 4 to 4+/5 Goal to be met by: 06/10/18 Plan PLAN OF CARE EXPIRES ON:: 06/10/18 ORDER # VISITS AND/OR THROUGH DATE: 06/10/18 PLAN: Progress strengthening and balance work to increase patients safety and functional activity level.
--- NOTE | 2018-05-06 13:14 | RS.CXNS ---
Date of scheduled appointment: 05/06/18 Type: Cancel (Patient called to cancel appointment. States she has foot pain that is limiting her walking. Rescheduled for next week.)
--- NOTE | 2018-05-13 15:50 | RS.OPPTDC ---
Date of Discharge: 05/04/18 Date of Evaluation: 09/30/16 Number of Visits: 2 Treatment Diagnosis: fall, multiple contusions, gait difficulty, late effect CVA , fx lumbar Current Level of Function: pt began basic HEP. Current Complaints/Gains: pt only attended 1 session after eval. pt cancelled 2nd appt due to foot pain. pt called 05/10/18 and pt reports she has a fx to foot. pt states she has to stop PT at this time. Functional Outcome Measure - G Codes & Severity Modifier G Codes & Modifier: mobility: goal CJ. mobility dc CL. no change Source of G Code score: dyn gait index Observation - Observation Posture: Forward Head, Rounded Shoulders Interventions - Exercise/Activities/Manual Therapy Exercises/Activities: n/a Manual Therapy: NA HOME EXERCISE PROGRAM: pt given written HEP including AP, LAQ, seated hip flex, hip abd with green tband, isometric hip add. Standing at kitchen counter for marching, toe-ups, and alt hip abd. Gastroc stretch at wall. - Charges Timed Code Treatment Minutes: n/a Total Treatment Time: n/a Procedures billed for this date of service:: n/a Assessment Assessment: pt did not meet goals due to injury to foot. Patient Education: Home Exercise Program, Education of Plan of Care Rehab Potential: Fair Short Term Goals Goal #1: pt independent with initial HEP Goal to be met by: 05/20/18 Progress towards Goal:: Progressing Goal #2: Improve LLE strength 4/5 Goal to be met by: 05/20/18 Goal #3: pt amb in dept with no LOB without AD Goal to be met by: 05/20/18 Goal #4: Improved dyn standing balance as shown by dyn gait index score Goal to be met by: 05/20/18 Monotype Mechanic Goals Goal #1: Improve dyn stand balance as noted by dyn gait index score Goal to be met by: 06/10/18 Goal #2: pt amb community distances with no LOB with improved sequencing Goal to be met by: 06/10/18 Goal #3: No new falls reported Goal to be met by: 06/10/18 Progress towards goal: Progressing Goal #4: Improve BLE strength 4 to 4+/5 Goal to be met by: 06/10/18 Plan Comments: pt request due to foot pain, pt reports fx foot.
== END 2018-05-21 23:59 ==
PROVIDERS: ATTEND Family Medicine
DX: R26.0 Ataxic gait (principal); M62.81 Muscle weakness (generalized); R29.6 Repeated falls; I69.90 Unspecified sequelae of unspecified cerebrovascular disease; M81.0 Age-related osteoporosis without current pathological fracture; T07.XXXD Unspecified multiple injuries, subsequent encounter; W19.XXXD Unspecified fall, subsequent encounter